=== PATIENT | female | born 1955 | race Two or more races ===

== ENCOUNTER 2022-02-04 12:45 | Inpatient (IN) | payer OTHER ==
[~2022-02-04] VITALS: Ht 162.6 cm; Wt 81.6 kg
[2022-02-04] MEDS ORDERED: ZEGERID 40 MG1 EACH PO (16:33)
[2022-02-04] MEDS ORDERED: PEPCID40 MG PO (16:33)
[2022-02-04] MEDS ORDERED: DESOWEN (16:35)
[2022-02-04] MEDS ORDERED: [UNRECOGNIZED DRUG - OTHER] OP (16:36)
== END 2022-02-08 17:04 | disposition home or self-care (01) | DRG 741 ==
LOC: SURG 02-06 07:00 → O/R 02-06 07:48 → OB/GYN 02-06 07:48 → SURG 02-06 12:45 → OB/GYN 02-06 18:51
PROVIDERS: ADMIT Specialist; ATTEND Specialist
PROC: 0UT7FZZ Resection of Bilateral Fallopian Tubes, Via Natural or Artificial Opening With Percutaneous Endoscopic Assistance (ICD-10-PCS; 2022-02-06)
PROC: 0UT2FZZ Resection of Bilateral Ovaries, Via Natural or Artificial Opening With Percutaneous Endoscopic Assistance (ICD-10-PCS; 2022-02-06)
PROC: 07BC4ZZ Excision of Pelvis Lymphatic, Percutaneous Endoscopic Approach (ICD-10-PCS; 2022-02-06)
PROC: 0UT9FZZ Resection of Uterus, Via Natural or Artificial Opening With Percutaneous Endoscopic Assistance (ICD-10-PCS; principal; 2022-02-06 07:00)
DX: C54.1 Malignant neoplasm of endometrium (principal); Z20.822 Contact with and (suspected) exposure to COVID-19